=== PATIENT | male | born 1970 | race Caucasian/White ===

== ENCOUNTER 2017-07-12 00:25 | Emergency (ER) | payer MEDICARE, BC, OTHER ==
[~2017-07-12] VITALS: Ht 165.1 cm; Wt 78.0 kg
[2017-07-12 00:27] VITALS: BP 174/86; PULSE 88; RESP 16; TEMP 98.1; O2SAT 98
[2017-07-12] MEDS ORDERED: ATOR20TA15 PO (01:50)
[2017-07-12] MEDS ORDERED: [UNRECOGNIZED DRUG - OTHER] PO (01:50)
[2017-07-12] MEDS ORDERED: PANT20TA2 PO (01:50)
[2017-07-12] MEDS ORDERED: METO25TA3 PO (01:50)
[2017-07-12] MEDS ORDERED: ASPI1TAB57 PO (01:50)
[2017-07-12] MEDS ORDERED: BRIL90TA PO (01:50)
[2017-07-12] MEDS ORDERED: LOSA25TA PO (01:50)
[2017-07-12 02:21] LABS: AUTOMATED NEUTROPHIL # 8.5 TH/MM3 (1.8-7.7); BASOPHIL # 0.1 TH/MM3 (0-0.2); BASOPHIL % 0.5 % (0.0-2.0); EOSINOPHIL # 0.1 TH/MM3 (0-0.4); EOSINOPHIL % 0.9 % (0.0-4.0); HEMATOCRIT 44.4 % (39.0-51.0); HEMOGLOBIN 13.9 GM/DL (13.0-17.0); LYMPH % 25.2 % (9.0-44.0); LYMPHOCYTE # 3.2 TH/MM3 (1.0-4.8); MEAN CELL VOLUME 65.2 FL (80.0-100.0); MEAN CORPUSCULAR HEMOGLOBIN 20.4 PG (27.0-34.0); MEAN CORPUSCULAR HGB CONC 31.3 % (32.0-36.0); MEAN PLATELET VOLUME 8.5 FL (7.0-11.0); MONO % 6.8 % (0.0-8.0); MONOCYTE # 0.9 TH/MM3 (0-0.9); NEUT % 66.6 % (16.0-70.0); PLATELET COUNT 313 TH/MM3 (150-450); RED BLOOD COUNT 6.81 MIL/MM3 (4.50-5.90); RED CELL DISTRIBUTION WIDTH 15.6 % (11.6-17.2); WHITE BLOOD COUNT 12.7 TH/MM3 (4.0-11.0)
[2017-07-12 02:48] LABS: ALBUMIN 3.9 GM/DL (3.4-5.0); ALT (GPT) 26 U/L (12-78); AST (GOT) 12 U/L (15-37); BLOOD UREA NITROGEN 15 MG/DL (7-18); CALCIUM 8.8 MG/DL (8.5-10.1); CHLORIDE 105 MEQ/L (98-107); CREATININE 1.12 MG/DL (0.60-1.30); GLOMERULAR FILTRATION RATE 70 ML/MIN (>89); GLUCOSE,RANDOM 164 MG/DL (74-106); SODIUM (NA) 139 MEQ/L (136-145)
[2017-07-12 02:52] LABS: ALKALINE PHOSPHATASE 61 U/L (45-117); TOTAL BILIRUBIN ADULT 0.3 MG/DL (0.2-1.0); TOTAL PROTEIN 7.8 GM/DL (6.4-8.2); TROPONIN I LESS THAN 0.02 NG/ML (0.02-0.05)
[2017-07-12 03:30] VITALS: BP 156/80; PULSE 80; RESP 16; O2SAT 99
--- NOTE | 2017-07-12 03:43 | RADRPT ---
EXAM DATE/TIME: 07/12/2017 03:29 [place] COMPARISON: No previous studies available for comparison. INDICATIONS : Chest pain. MEDICAL HISTORY : None. SURGICAL HISTORY : Lumbar fusion. Stent. ENCOUNTER: Initial ACUITY: 1 day PAIN SCORE: 3/10 LOCATION: Bilateral chest FINDINGS: PA and lateral views of the chest demonstrate the lungs to be symmetrically aerated without evidence of mass, infiltrate or effusion. The cardiomediastinal contours are unremarkable. Osseous structure s are intact. CONCLUSION: Normal 2 view chest x-ray. Adrian Quintana MD on July 12, 2017 at 3:42 Board Certified Radiologist. This report was verified electronically.
--- NOTE | 2017-07-12 04:17 | PD ---
HPI Chief Complaint: Chest Pain Time Seen by Provider: 01:52 Travel History International Travel<30 days: No Contact w/Intl Traveler<30days: No Traveled to known affect area: No History of Present Illness HPI Patient is a 46-year-old male who was at a conference here in [facility] he lives in [place] patient developed expiratory chest pain shortness of breath sometime tonight he felt a hot flushing feeling as well. He has had some nasal congestion. Denies sore throat denies fever. Past recent history is that in March he had a stent of his right coronary artery it was 100% occluded when he went to the hospital with chest pain and had an emergent cath. Patient denies any pain similar to that at this time he reports at that time in March it was a pressure-like pain now he just feels like a vague ache. Patient takes one baby aspirin a day because he is allergic to aspirin but was desensitized to the ability to take one baby aspirin he takes Brilinta as well as metoprolol he is currently pain-free in the ER EKG is normal sinus rhythm PFSH Past Medical History Immunizations Current: Yes Tetanus Vaccination: Unknown Influenza Vaccination: No Social History Alcohol Use: Yes (occ) Tobacco Use: No Substance Use: No Allergies-Medications (Allergen,Severity, Reaction): Coded Allergies: No Known Allergies (Unverified , 07/12/17) Reported Meds & Prescriptions Reported Meds & Active Scripts Active Reported Aspirin 81 (Aspirin) 81 Mg Tabdr 81 Mg PO DAILY Metoprolol Tartrate 25 Mg Tab 12.5 Mg PO BID Brilinta (Ticagrelor) 90 Mg Tab 90 Mg PO BID [xiqduo xr] 10 Mg PO DAILY Losartan (Losartan Potassium) 25 Mg Tab 25 Mg PO DAILY Atorvastatin (Atorvastatin Calcium) 20 Mg Tab 20 Mg PO HS Pantoprazole (Pantoprazole Sodium) 20 Mg Tab 10 Mg PO DAILY Review of Systems Except as stated in HPI: all other systems reviewed are Neg HENT: Positive: Congestion Cardiovascular: Positive: Chest Pain or Discomfort Respiratory: Positive: Cough Physical Exam Narrative GENERAL: nontoxic healthy appearing male SKIN: Warm and dry. HEAD: Atraumatic. Normocephalic. EYES: Pupils equal and round. No scleral icterus. No injection or drainage. ENT: No nasal bleeding or discharge. Mucous membranes pink and moist. NECK: Trachea midline. No JVD. CARDIOVASCULAR: Regular rate and rhythm. RESPIRATORY: No accessory muscle use. Clear to auscultation. Breath sounds equal bilaterally. GASTROINTESTINAL: Abdomen soft, non-tender, nondistended. Hepatic and splenic margins not palpable. MUSCULOSKELETAL: Extremities without clubbing, cyanosis, or edema. No obvious deformities. NEUROLOGICAL: Awake and alert. No obvious cranial nerve deficits. Motor grossly within normal limits. Five out of 5 muscle strength in the arms and legs. Normal speech. PSYCHIATRIC: Appropriate mood and affect; insight and judgment normal. Data Data Last Documented VS Vital Signs Date Time Temp Pulse Resp B/P (MAP) Pulse Ox O2 Delivery O2 Flow Rate FiO2 07/12/17 06:09 75 16 139/76 (97) 97 Room Air 07/12/17 00:27 98.1 Orders Orders Complete Blood Count With Diff (07/12/17 02:02) Comprehensive Metabolic Panel (07/12/17 02:02) Troponin I (07/12/17 02:02) Ckmb (Isoenzyme) Profile (07/12/17 02:02) Act Partial Throm Time (Ptt) (07/12/17 02:02) Prothrombin Time / Inr (Pt) (07/12/17 02:02) Electrocardiogram (07/12/17 ) Chest, Pa & Lat (07/12/17 ) Influenzae A/B Antigen (07/12/17 03:57) Group A Rapid Strep Screen (07/12/17 03:57) Strep Culture (Group A) (07/12/17 04:05) Troponin I (07/12/17 04:59) Electrocardiogram (07/12/17 ) Ed Discharge Order (07/12/17 05:56) Labs Laboratory Tests Test 07/12/17 02:00 07/12/17 05:00 White Blood Count 12.7 TH/MM3 Red Blood Count 6.81 MIL/MM3 Hemoglobin 13.9 GM/DL Hematocrit 44.4 % Mean Corpuscular Volume 65.2 FL Mean Corpuscular Hemoglobin 20.4 PG Mean Corpuscular Hemoglobin Concent 31.3 % Red Cell Distribution Width 15.6 % Platelet Count 313 TH/MM3 Mean Platelet Volume 8.5 FL Neutrophils (%) (Auto) 66.6 % Lymphocytes (%) (Auto) 25.2 % Monocytes (%) (Auto) 6.8 % Eosinophils (%) (Auto) 0.9 % Basophils (%) (Auto) 0.5 % Neutrophils # (Auto) 8.5 TH/MM3 Lymphocytes # (Auto) 3.2 TH/MM3 Monocytes # (Auto) 0.9 TH/MM3 Eosinophils # (Auto) 0.1 TH/MM3 Basophils # (Auto) 0.1 TH/MM3 CBC Comment DIFF FINAL Differential Comment Prothrombin Time 10.0 SEC Prothromb Time International Ratio 1.0 RATIO Activated Partial Thromboplast Time 24.1 SEC Blood Urea Nitrogen 15 MG/DL Creatinine 1.12 MG/DL Random Glucose 164 MG/DL Total Protein 7.8 GM/DL Albumin 3.9 GM/DL Calcium Level 8.8 MG/DL Alkaline Phosphatase 61 U/L Aspartate Amino Transf (AST/SGOT) 12 U/L Alanine Aminotransferase (ALT/SGPT) 26 U/L Total Bilirubin 0.3 MG/DL Sodium Level 139 MEQ/L Potassium Level 4.0 MEQ/L Chloride Level 105 MEQ/L Carbon Dioxide Level 26.0 MEQ/L Anion Gap 8 MEQ/L Estimat Glomerular Filtration Rate 70 ML/MIN Total Creatine Kinase 57 U/L Troponin I LESS THAN 0.02 NG/ML LESS THAN 0.02 NG/ML MDM Medical Decision Making Medical Screen Exam Complete: Yes Emergency Medical Condition: Yes Differential Diagnosis Chest pain of ischemic vs pericarditis vs PNA bronchitis Pneumothorax vs other costochondritis Narrative Course EKG and trop x2 and trop x 2 negative flu negative safe for d/c symptomatic treatment close [place] 48 hrs Diagnosis Primary Impression: Atypical chest pain Disposition: 01 DISCHARGE HOME Condition: Good Jayce Bazzi MD Jul 12, 2017 04:17
[2017-07-12 06:09] VITALS: BP 139/76; PULSE 75; RESP 16; O2SAT 97
--- NOTE | 2017-07-12 14:06 | EKG ---
Date Performed: 07/12/2017 Time Performed: 01:10:44 PTAGE: 46 years EKG: Sinus rhythm NONSPECIFIC T-WAVE ABNORMALITY BORDERLINE ECG NO PREVIOUS TRACING Nonspecific ST elevation. Clinical correlation will be necessary to a ssess the nonspecific ST elevation, but it is most consistent with repolarization change. DOCTOR: Suki Walker Interpretating Date/Time 07/12/2017 14:04:37
--- NOTE | 2017-07-12 14:08 | EKG ---
Date Performed: 07/12/2017 Time Performed: 05:57:15 PTAGE: 46 years EKG: Sinus rhythm NONSPECIFIC T-WAVE ABNORMALITY BORDERLINE ECG PREVIOUS TRACING 07/12/[address] elevation. No significant serial change since the most recent tracing. DOCTOR: Suki Walker Interpretating Date/Time 07/12/2017 14:07:42
== END 2017-07-12 06:12 | disposition home or self-care (01) ==
LOC: NEPC 00:25
DX: R07.89 Other chest pain (principal); R09.81 Nasal congestion; R05 Cough; R06.02 Shortness of breath; R94.31 Abnormal electrocardiogram [ECG] [EKG]; Z79.82 Long term (current) use of aspirin; Z79.899 Other long term (current) drug therapy
CPT/HCPCS: 71046; 80053; 82550; 84484; 85025; 85610; 85730; 87081; 87804; 87880; 93005; 99285